=== PATIENT | female | born 1975 | race Caucasian/White ===

== ENCOUNTER 2021-07-05 10:10 | Day surgery (SDC) | payer BC ==
[~2021-07-05 10:10] MED LIST: EPINEPHrine 0.3 MG, Cefuroxime 750 MG, Ketorolac 30 MG, Sodium Chloride 0.9% 7.9 ML PRN; Lactated Ringers 1,000 ML IV SCH; Lidocaine 1%/Sod Bicarbonate in NS 8.4% 1 ML Syringe IDERM PRN; Sodium Chloride 0.9% 10 ML Syringe FLUSH PRN
--- NOTE | 2021-07-05 11:14 | PCM.PREANE ---
Preanesthetic Assessment - Procedure Proposed Procedure: Left total knee arthroplasty - Anesthesia/Transfusion/Family Hx Anesthesia History: Prior Anesthesia Without Reaction Family History of Anesthesia Reaction: No Transfusion History: No Prior Transfusion(s) Intubation History: Unknown - Review of Systems General: No Symptoms Pulmonary: No Symptoms Cardiovascular: No Symptoms Gastrointestinal: No Symptoms Neurological: No Symptoms Other: Reports: Anxiety - Physical Assessment NPO Status Date: 07/04/21 NPO Status Time: 23:00 Vital Signs: Last Vital Signs Temp 97.1 F 07/05/21 10:30 Pulse 63 07/05/21 10:30 Resp 16 07/05/21 10:30 BP 140/67 07/05/21 10:30 Pulse Ox 97 07/05/21 10:30 Height: 1.6 m Weight: 76 kg ASA Class: 2 Mental Status: Alert & Oriented x3 Airway Class: Mallampati = 2 Dentition: Reports: Caries Thyro-Mental Finger Breadths: 3 Mouth Opening Finger Breadths: 3 ROM/Head Extension: Full Lungs: Clear to Auscultation, Normal Respiratory Effort Cardiovascular: Regular Rate, Regular Rhythm, No Murmurs - Lab Values: Labs reviewed and okay to proceed - Imaging/EKG Impressions: EKG NSR HR 63 Chest x-ray vascular congestion with basiliar interstitial opacification, possibly d/t nontypical CHF. R pulmonary apex nodule less than 1 cm. See primary note. Liver and renal function normal. ECHO EF 60%, see results on paper chart, unremarkable CT of chest, see results on paper chart-cleared per cardiology and primary to have surgery - Allergies Allergies/Adverse Reactions: Allergies Allergy/AdvReac Type Severity Reaction Status Date / Time bee venom protein (honey bee) Allergy Cannot Verified 07/05/21 10:38 Remember benzocaine Allergy Hives Verified 07/05/21 10:38 codeine Allergy Cannot Verified 07/05/21 10:38 Remember - Acknowledgements Anesthesia Type Planned: General Anesthesia, Spinal, Regional Block Pt an Appropriate Candidate for the Planned Anesthesia: Yes Alternatives and Risks of Anesthesia Discussed w Pt/Guardian: Yes Pt/Guardian Understands and Agrees with Anesthesia Plan: Yes PreAnesthesia Questionnaire HEENT History: Reports: Impaired Vision Cardiovascular History: Reports: None Respiratory History: Reports: Other (See Below) (small nodule noted on chest x- ray, see primary notes) Gastrointestinal History: Reports: GERD (well controlled, food dependent) Genitourinary History: Reports: None [employer]CH[employer] History: Reports: None Musculoskeletal History: Reports: Other (See Below) Other Musculoskeletal History: left knee OA, left knee surgery Neurological History: Reports: None Psychiatric History: Reports: Anxiety Endocrine/Metabolic History: Reports: None Hematologic History: Reports: None Immunologic History: Reports: None Oncologic (Cancer) History: Reports: None Dermatologic History: Reports: Eczema, Other (See Below) Other Dermatologic History: lipoma excision - Infectious Disease History Infectious Disease History: Reports: Novel Coronavirus - Past Surgical History Head Surgeries/Procedures: Reports: None HEENT Surgical History: Reports: Oral Surgery Cardiovascular Surgical History: Reports: None Respiratory Surgical History: Reports: None GI Surgical History: Reports: None Female Surgical History: Reports: None Endocrine Surgical History: Reports: None Neurological Surgical History: Reports: None Musculoskeletal Surgical History: Reports: Other (See Below) Other Musculoskeletal Surgeries/Procedures:: Left knee surgery in her 20's-scope Oncologic Surgical History: Reports: None Dermatological Surgical History: Reports: None, Other (See Below) Other Dermatological Surgeries/Procedures: lipoma excision 1976 - SUBSTANCE USE Tobacco Use Status *Q: Current Every Day Tobacco User Tobacco Use Within Last Twelve Months: Cigarettes Second Hand Smoke Exposure: No Days Per Week of Alcohol Use: 0 Number of Drinks Per Day: 0 Total Drinks Per Week: 0 Recreational Drug Use History: No - HOME MEDS Home Medications: Home Meds Apixaban [Eliquis] 2.5 mg PO BID #60 tablet 07/02/21 [Rx] Cholecalciferol (Vitamin D3) [Vitamin D3] 5,000 unit PO DAILY 07/02/21 [History] Cyclobenzaprine [Flexeril] 5 - 10 mg PO BID PRN #20 tab 07/02/21 [Rx] Tapentadol [Nucynta] 50 - 100 mg PO Q6H PRN #30 tab 07/02/21 [Rx] - CURRENT (IN HOUSE) MEDS Current Meds: Current Medications Epinephrine HCl 0.3 mg/Cefuroxime Sodium 750 mg/Ketorolac Tromethamine 30 mg/Sodium Chloride 7.9 ml 0 mg .XX ASDIRECTED PRN PRN Reason: Pain Stop: 07/05/21 15:00 Sodium Chloride (Sodium Chloride 0.9% 10 Ml Syringe) 10 ml FLUSH ASDIRECTED PRN PRN Reason: Keep Vein Open Stop: 07/05/21 23:00 Discontinued Medications Epinephrine HCl 0.3 mg/Cefuroxime Sodium 750 mg/Ketorolac Tromethamine 30 mg/Sodium Chloride 7.9 ml 0 mg .XX ASDIRECTED PRN PRN Reason: Pain Stop: 06/28/21 18:00 Lactated Ringer's (Ringers, Lactated) 1,000 mls @ 125 mls/hr IV ASDIRECTED ANY Stop: 06/28/21 23:00 Lactated Ringer's (Ringers, Lactated) 1,000 mls @ 125 mls/hr IV ASDIRECTED ANY Stop: 07/05/21 23:00 Last Admin: 07/05/21 10:40 Dose: 125 mls/hr Documented by: Lidocaine/Sodium Bicarbonate (Lidocaine 1%/Sod Bicarbonate In Ns 8.4% 1 Ml Syringe) 0.25 ml IDERM ONETIME PRN PRN Reason: Prior to IV Start Stop: 06/28/21 18:00 Lidocaine/Sodium Bicarbonate (Lidocaine 1%/Sod Bicarbonate In Ns 8.4% 1 Ml Syringe) 0.25 ml IDERM ONETIME PRN PRN Reason: Prior to IV Start Stop: 07/05/21 23:00 Sodium Chloride (Sodium Chloride 0.9% 10 Ml Syringe) 10 ml FLUSH ASDIRECTED PRN PRN Reason: Keep Vein Open Stop: 06/28/21 18:00
[2021-07-05] MEDS ORDERED: Dexmedetomidine 200 MCG/2 ML SDV ONE (13:18)
[2021-07-05] MEDS ORDERED: Ropivacaine 0.5% 5 MG/ML 30 ML SDV ONE (13:19)
[2021-07-05] MEDS ORDERED: Vancomycin 1 GM SDV ONE (13:58)
[2021-07-05] MEDS ORDERED: ceFAZolin 1 GM Vial ONE (14:13)
[2021-07-05] MEDS ORDERED: Midazolam 1 MG/ML 2 ML SDV ONE (14:13)
[2021-07-05] MEDS ORDERED: fentaNYL 100 MCG/2 ML SDV ONE (14:17)
[2021-07-05] MEDS ORDERED: Propofol 200 MG/20 ML SDV ONE (14:27)
[2021-07-05] MEDS ORDERED: ePHEDrine 50 MG/ML SDV ONE (14:50)
[2021-07-05] MEDS ORDERED: Lactated Ringers 1,000 ML ONE (14:51)
[2021-07-05] MEDS ORDERED: Dexamethasone 4 MG/ML 5 ML MDV ONE (15:12)
--- NOTE | 2021-07-05 16:27 | PCM.POSTAN ---
POST ANESTHESIA ASSESSMENT - MENTAL STATUS Mental Status: Alert, Oriented - VITAL SIGNS Vital Signs: Last Vital Signs Temp 98.1 F 07/05/21 16:15 Pulse 63 07/05/21 10:30 Resp 14 07/05/21 16:15 BP 130/64 07/05/21 16:15 Pulse Ox 95 07/05/21 16:15 - RESPIRATORY Respiratory Status: Respiratory Rate WNL, Airway Patent, O2 Saturation Stable - CARDIOVASCULAR CV Status: Pulse Rate WNL, Blood Pressure Stable - GASTROINTESTINAL GI Status: No Symptoms - PAIN Pain Score: 0 (post SAB) - POST OP HYDRATION Hydration Status: Adequate & Stable
--- NOTE | 2021-07-05 16:28 | PCM.PRNOTE ---
- Free Text/Narrative Note: Postoperative regional pain control requested by surgeon. Pre-op Dx: Lt knee osteoarthritis Post-op Rx: Lt total knee arthroplasty. Procedure: Lt Adductor canal block with U/S guidance Requesting physician: Dr. Randy Leggett Risks and benefits discussed with the patient preoperatively including infection, bleeding, incomplete or failed block, possible nerve damage, local anesthetic toxicity. Chart reviewed, VS stable. Permit signed. Patient in PACU , stable , alert and awake after SAB. Time out performed at 16:14. Left mid-thigh was prepped with Chloraprep x 1 and allowed to dry. Under aseptic technique, the Left femoral artery and sartorius muscle were identified under ultrasound prior to needle insertion . 4" Stimuplex needle #22 G was inserted under US guidance. Under direct visualization of needle tip the injection of 0.5% Ropivacaine with 1:200k epinephrine,(mixed with 40 mcg Dexmedetomidine and 6 mg of Dexamethasone), total of 30 mls in divided doses, maintaining negative aspiration was completed around the femoral artery under the sartorius muscle without problems. No local anesthetic toxicity was noted. Patient is awake, stable and tolerated the procedure well. Times: 16:14 - 16:20
--- NOTE | 2021-07-05 17:05 | CR ---
Left knee: AP and crosstable lateral views of the left knee were obtained. Comparison: Prior CT left knee study of 06/04/21. Knee prosthesis is seen as well as patellar prosthesis. Components are aligned. Underlying bony structures appear intact. Soft tissue air is seen. Impression: 1. Satisfactory postoperative radiographic appearance of recently placed left knee prostheses. Diagnostic code #2
--- NOTE | 2021-07-05 17:13 | PCM48HPAN ---
Post Anesthesia Note - EVALUATION WITHIN 48HRS OF ANESTHETIC Vital Signs in Normal Range: Yes Patient Participated in Evaluation: Yes Respiratory Function Stable: Yes Airway Patent: Yes Cardiovascular Function Stable: Yes Hydration Status Stable: Yes Pain Control Satisfactory: Yes Nausea and Vomiting Control Satisfactory: Yes Mental Status Recovered: Yes Vital Signs: Last Vital Signs Temp 98.1 F 07/05/21 16:45 Pulse 70 07/05/21 17:00 Resp 16 07/05/21 17:00 BP 131/73 07/05/21 17:00 Pulse Ox 100 07/05/21 17:00
--- NOTE | 2021-07-14 16:09 | PCM.OPNOTE ---
- General Post-Op/Procedure Note Date of Surgery/Procedure: 07/05/21 Operative Procedure(s): left cemented total knee arthroplasty with delmy odin robotics Pre Op Diagnosis: left knee osteoarthrosis Post-Op Diagnosis: Same Anesthesia Technique: Local, MAC, Spinal Primary Surgeon: Randy Blackwood Anesthesia Provider: Alex Lockett Pearl Glue Operator: Amaris Randall Pearl Glue Operator: Anna Gates EBL in mLs: 5 Complications: None Condition: Good Free Text/Narrative:: 09/30 9mm 29x9
--- NOTE | 2021-07-14 17:41 | OR ---
DATE OF OPERATION: 07/05/2021 SURGEON: Randy Blackwood MD OPERATION PERFORMED: Left cemented total knee arthroplasty with [place] Kevin robotics. PREOPERATIVE DIAGNOSIS: Left knee osteoarthrosis. POSTOPERATIVE DIAGNOSIS: Left knee osteoarthrosis. ANESTHESIA: Technique: Local MAC with spinal. ANESTHESIA PROVIDER: Sydnee Mclaughlin. ASSISTANTS: Amaris Randall PA-C, and Anna Gates LPN. ESTIMATED BLOOD LOSS: 5 mL. COMPLICATIONS: None. CONDITION: Stable. IMPLANTS: 1. Isabell size 3 cemented PS femur. 2. [place] size 3 cemented [place] tibial baseplate. 3. [place] size 3, 9 mm PS X3 polyethylene. 4. Isabell size 29 x 9 mm cemented asymmetric patella. DESCRIPTION OF PROCEDURE: The patient was identified in the preop holding area. Proper site was marked and identified by the surgeon. The patient was taken back to the operating theater where after adequate anesthesia, the patient's left lower extremity had a nonsterile tourniquet applied and it was sterilely prepped and draped in the usual sterile fashion. OR time-out was performed. The patient received 2 g IV Ancef. Leg rubi was then applied to the left lower extremity. At this time, the left lower extremity was exsanguinated. Tourniquet was insufflated to 250 mmHg . Standard anterior incision was made. Medial parapatellar arthrotomy was created. Deep fibers of the MCL were raised as well as anterior fat pad was resected. Attention was turned to the patella. Patella measured 21 mm; it was resected to 13 mm for 29 x 9 mm patella. Drill holes were then drilled. Attention was then turned to the femur. Two 4.0 pins were placed intra- incisionally for the [place] Kevin robotic array and then 2 more were placed on the tibia 3 fingerbreadths below the tibial tubercle. The [place] Kevin robotic arrays were placed on both the femur and the tibia then at this time as well as checkpoints on the femur and tibia. Hip center rotation was then obtained. The medial and lateral malleoli were marked. At this time, 40 points were obtained off the femur and the tibia for the [place] Kevin robotic plan. The patient's knee was brought to full extension. Varus and valgus stresses were applied and then into 90 degrees of flexion with a curved osteotome. Varus and valgus stresses were applied. At this time, rapt.fm robotic plan was done to 19 mm gaps in both flexion and extension. [place] Mako robotic arm was then brought in. A straight saw blade was then used for the tibial cut, the anterior femoral cut, the anterior chamfer cut, and the posterior femoral cut. All bony fragments were removed. Saw blade was then switched out and the distal femoral cut as well as the posterior chamfer cut was completed. At this time, medial and lateral menisci were resected as well as any posterior osteophytes. A 3 mm trial tibia was then placed, 3 mm trial femur was placed, and a [place] size 3, 9 mm PS X3 polyethylene trial liner was placed. The patient's knee was brought to full extension and flexion. Varus and valgus stresses were applied, was found to be stable with no instability. No signs of liftoff or loosening were noted. At this time, box cut was completed on the femur. The pins were removed from the femur and the tibia as well as the arrays and the checkpoints. Cement was mixed on the back table. All cut surfaces were irrigated with pulse lavage irrigation with Ancef and then completely dried. Once the cement was ready, the [place] size 3 mm cemented [place] tibial base plate having been previously stamped and drilled, was then cemented in place on the tibia. The Isabell size 3 mm cemented femur was cemented into place. The patient had a [place] size 3, 9 mm PS X3 polyethylene insert placed. The patient's knee was brought to full extension. Excess cement was removed. A Isabell size 29 x 9 mm cemented asymmetric patella was then cemented into place. 1 L of pulse lavage irrigation with Ancef was irrigated through the knee along with 400 mL of IrriSept irrigation. Periarticular injection was completed. Topical tranexamic acid and vancomycin powder were applied. A #2 barbed suture was used for closure of the medial parapatellar arthrotomy in flexion. 2-0 Vicryl and Stratafix were used for subcutaneous closure. Prineo was used for cutaneous closure. The patient had a sterile soft dressing applied. The tibial holes were closed with nylon, and this was also covered with a sterile soft dressing. The patient had an DAVI wrap applied and was sent to PACU in stable condition. The patient tolerated the procedure well. MMFABIO /[id number]
== END 2021-07-05 18:10 | disposition home or self-care (01) ==
LOC: JD.SDS 10:10
PROVIDERS: ATTEND Orthopaedic Surgery
DX: M17.12 Unilateral primary osteoarthritis, left knee (principal); F17.210 Nicotine dependence, cigarettes, uncomplicated; K21.9 Gastro-esophageal reflux disease without esophagitis; F41.9 Anxiety disorder, unspecified; Z88.5 Allergy status to narcotic agent; Z91.030 Bee allergy status; Z88.8 Allergy status to other drugs, medicaments and biological substances; Z98.890 Other specified postprocedural states
CPT/HCPCS: 27447; 73560; 97110; 97116; 97161; C1713; C1776; J0690; J1100; J2250; J2704; J2795; J3010; J3370; J7120; 01402; 64450; 76942